=== PATIENT | male | born 1965 | race Caucasian/White ===

== ENCOUNTER 2024-01-20 14:23 | Outpatient (CLI) | payer BC, SELFPAY ==
--- NOTE | ~2024-01-20 | MR_ITS ---
EXAMINATION: MR knee LT wo con DATE: 01/20/2024 15:07 INDICATION: Generalized left knee pain post acute medial meniscal tear of the left knee TECHNIQUE: Magnetic resonance imaging (MRI) of the left knee was performed without intravenous contra st. Sequences included coronal PD-weighted FSE, coronal PD-weighted FS FSE, sagittal T2-weighted FSE , sagittal PD-weighted FS FSE and axial PD weighted fat saturated FSE. COMPARISON: None. FINDINGS: There a couple sites of severe metallic magnetic field artifact likely related to foreign bodies of i ndeterminate etiology centered over the soft tissues medial to the left knee. This obscures the media l sided articular cartilage in the medial compartment and the body of the medial meniscus. Medial compartment: Complex tear at the posterior horn and posterior body of the medial meniscus. The more anterior aspec t of the meniscal body and medial side of the anterior horn is obscured. There is mild partial-thickn ess cartilage loss with chondral surface regularity at the central weightbearing medial femoral condy le. Lateral compartment: There is minimal truncation of the inner free edge of the body of the lateral meniscus suggesting a s mall radial tear. There is an additional longitudinal vertical tear at the medial side of the posteri or horn. Articular cartilage is normal. Patellofemoral compartment: Partial-thickness patellar chondral ulceration and fissuring involving less than 50% the cartilage th ickness but without degenerative subchondral changes. Trochlear cartilage is normal. Ligaments and tendons: Anterior and posterior cruciate ligaments are normal. The fibular collateral ligament complex is norm al. The medial collateral ligament is not diagnostically assessed with large portions of the ligament obscured by the magnetic field artifact. Increased signal without thickening at the proximal patella r tendon most likely magic angle artifact. The extensor mechanism is otherwise normal. The visualized medial and lateral hamstring tendons as well as the iliotibial band are normal. Fluid: Small left knee joint effusion. No loose osteochondral bodies identified. Osseous/other: Bone marrow signal is normal. No fracture or pathologic marrow replacing process. There is mild edema in the soft tissues abutting the anteromedial margin of the medial femoral condyle and extending enrike ng the posterior margin of the distal vastus medialis. IMPRESSION: 1. Complex tear at the posterior horn and posterior body of the medial meniscus. The more anterior me dial meniscus along with the medial collateral ligament are unable to be assessed as they are obscure d by metallic magnetic field artifact associated with likely foreign bodies in soft tissues medial to the knee. 2. Small radial tear along the innermost free edge of the body of the lateral meniscus and small tanna inal vertical tear at the medial side of the posterior horn. 3. Mild medial and patellofemoral compartment osteoarthritis with regions of moderate grade chondral malacia along the central weightbearing medial femoral condyle and at the patella. Reviewed, dictated and finalized at location A. IMPRESSION: 1. Complex tear at the posterior horn and posterior body of the medial meniscus . The more anterior medial meniscus along with the medial collateral ligament a re unable to be assessed as they are obscured by metallic magnetic field artifa ct associated with likely foreign bodies in soft tissues medial to the knee. 2. Small radial tear along the innermost free edge of the body of the lateral m eniscus and small marginal vertical tear at the medial side of the posterior ho rn. 3. Mild medial and patellofemoral compartment osteoarthritis with regions of mo derate grade chondral malacia along
== END 2024-01-20 14:24 | disposition home or self-care (01) ==
LOC: MICIMG 14:25
PROVIDERS: PCP Family Medicine
DX: S83.232A Complex tear of medial meniscus, current injury, left knee, initial encounter (principal); S83.282A Other tear of lateral meniscus, current injury, left knee, initial encounter; M17.12 Unilateral primary osteoarthritis, left knee; M94.262 Chondromalacia, left knee; X58.XXXA Exposure to other specified factors, initial encounter
CPT/HCPCS: 73721